=== PATIENT | male | born 1970 | race Caucasian/White ===

== ENCOUNTER 2016-10-11 13:29 | Inpatient (IN) | payer MEDICARE, MEDICAID ==
[~2016-10-11 13:29] MED LIST: ASPIRIN EC81 MG PO; COREG12.5 M1 PO; LASIX80 M1 PO; LEVAQUIN250 M3 PO; METOLAZONE2.5 M1 PO; NORVASC5 M2 PO; OMEPRAZOLE40 M2 PO; PREDNISONE; PROGRAF1 M1 PO; ROCALTROL0.25 MC1 PO; SODIUM BICARBO650 M1 PO; VITAMIN D31000 UNI3 PO
[2016-10-11] MEDS ORDERED: ZYLOPRIM100 M1 PO (14:12)
[2016-10-11] MEDS ORDERED: FLINTSTONES1 EAC1 PO (14:13)
[2016-10-11] MEDS ORDERED: SENSIPAR30 M1 PO (14:14)
[2016-10-11] MEDS ORDERED: CELLCEPT500 M1 PO (14:16)
[2016-10-11] MEDS ORDERED: COZAAR50 M1 PO (14:17)
[2016-10-11] MEDS ORDERED: LIPITOR40 M1 PO (14:18)
[2016-10-11] MEDS ORDERED: FEOSOL325 M1 PO (14:18)
[2016-10-11] MEDS ORDERED: PROVENTIL HFA6.7 G1 PO (14:19)
[2016-10-11] MEDS ORDERED: DIOVAN160 M1 PO (14:19)
[2016-10-11] MEDS ORDERED: FERRIC CITRATE210 MG PO ×2 (14:24→17:11)
[2016-10-11] MEDS ORDERED: PREDNISONE5 M1 PO (14:25)
[2016-10-12] MEDS ORDERED: NORVASC10 M2 PO (15:27)
[2016-10-12] MEDS ORDERED: COZAAR100 M1 PO (15:28)
== END 2016-10-12 17:30 | DRG 682 ==
LOC: PCUB 13:29
PROVIDERS: Physician Assistant; ADMIT Internal Medicine Cardiovascular Disease
PROC: 5A1D00Z (ICD-10-PCS; principal; 2016-10-11)
DX: I12.0 Hypertensive chronic kidney disease with stage 5 chronic kidney disease or end stage renal disease (principal); N18.6 End stage renal disease; Z94.0 Kidney transplant status; Z99.2 Dependence on renal dialysis; E78.5 Hyperlipidemia, unspecified; M10.9 Gout, unspecified; D63.1 Anemia in chronic kidney disease; E21.3 Hyperparathyroidism, unspecified
CPT/HCPCS: A9500; J2270; J2405; J2785; J7507; J7517